=== PATIENT | female | born 1950 | race Caucasian/White ===

== ENCOUNTER 2023-10-23 14:50 | Emergency (ER) | payer MEDICARE ==
--- NOTE | 2023-10-23 15:17 | ED ---
Lower Extremity Injury HPI - General Chief Complaint: Extremity Injury, Lower Stated Complaint: Left Leg Pain Time Seen by Provider: 10/23/23 15:10 Source: patient, RN notes reviewed Mode of arrival: ambulatory Limitations: no limitations - History of Present Illness Initial Comments: 73-year-old female with no significant past medical history is emergency department with left leg pain that has been ongoing for the past 2 weeks. Pain is consistent and is described as a heaviness and aching sensation that travels down her left calf. She states that this pain started abruptly, with no acute cause or trauma that she is able to identify. Patient is able to complete range of motion of her left leg/knee while sitting but states that when she moves p ositions, like sitting to standing, she feels a giving out sensation of her left leg and denies any numbness or tingling. Patient states that she went to an urgent care on October 09 where they completed an ultrasound of her leg with no evidence of acute or chronic DVT. Denies previous surgery to left leg or knee. Denies history of heart attack or stroke, is not on any blood thinners. - Related Data Allergies Allergy/AdvReac Type Severity Reaction Status Date / Time No Known Allergies Allergy Verified 10/23/23 15:02 Review of Systems ROS Statement: Those systems with pertinent positive or pertinent negative responses have been documented in the HPI. ROS Other: All systems not noted in ROS Statement are negative. Past Medical History Past Medical History: No Reported History History of Any Multi-Drug Resistant Organisms: None Reported Past Surgical History: Cholecystectomy Additional Past Surgical History / Comment(s): gastric bypass, Past Psychological History: No Psychological Hx Reported Smoking Status: Former smoker Past Alcohol Use History: None Reported Past Drug Use History: None Reported General Exam Limitations: no limitations General appearance: alert, in no apparent distress Head exam: Present: atraumatic, normocephalic, normal inspection Eye exam: Present: normal appearance, PERRL, EOMI. Absent: scleral icterus, conjunctival injection, periorbital swelling ENT exam: Present: normal exam, mucous membranes moist Neck exam: Present: normal inspection. Absent: tenderness, meningismus, lymphadenopathy Respiratory exam: Present: normal lung sounds bilaterally. Absent: respiratory distress, wheezes, rales, rhonchi, stridor Cardiovascular Exam: Present: regular rate, normal rhythm, normal heart sounds. Absent: systolic murmur, diastolic murmur, rubs, gallop, clicks GI/Abdominal exam: Present: soft, normal bowel sounds. Absent: distended, tenderness, guarding, rebound, rigid Left Hip exam: Present: normal inspection Upper Leg exam: Present: normal inspection Knee exam: Present: normal inspection, tenderness (posterior knee), crepitus (mild crepitus with flexion and extension). Absent: full ROM (pain with active flexion and extension), swelling, ecchymosis Lower Leg exam: Present: normal inspection, tenderness (lateral popliteal region tenderness to palpation) Ankle exam: Present: normal inspection Foot/Toe exam: Present: normal inspection Neurovascular tendon exam: Present: no vascular compromise Back exam: Present: normal inspection Neurological exam: Present: alert, oriented X3, CN II-XII intact Psychiatric exam: Present: normal affect, normal mood Skin exam: Present: warm, dry, intact, normal color. Absent: rash Course Vital Signs 10/23/23 10/23/23 14:57 16:48 Temperature 98.4 F 97.6 F Pulse Rate 72 66 Respiratory 18 18 Rate Blood Pressure 162/108 162/89 O2 Sat by Pulse 98 98 Oximetry Medical Decision Making - Medical Decision Making Was pt. sent in by a medical professional or institution (, PA, DIRECTOR OF PSYCHOLOGY, urgent care, hospital, or shelter...) When possible be specific @ -No Did you speak to anyone other than the patient for history (EMS, parent, family, police, friend...)? What history was obtained from this source @ -No Did you review nursing and triage notes (agree or disagree)? Why? @ -I reviewed and agree with nursing and triage notes Were old charts reviewed (outside hosp., previous admission, EMS record, old EKG, old radiological studies, urgent care reports/EKG's, shelter records)? Report findings @ -No old charts were reviewed Differential Diagnosis (chest pain, altered mental status, abdominal pain women, abdominal pain men, vaginal bleeding, weakness, fever, dyspnea, syncope, headache, dizziness, GI bleed, back pain, seizure, CVA, palpatations, mental health, musculoskeletal)? @ -Differential Musculoskeletal Muscular strain, contusion, ligament sprain, fracture, arthritis, septic arthritis, bursitis, cellulitis, muscle spasm, nerve compression, DVT, arterial occlusion, herpes zoster, electrolyte abnormality, tumor.... This is not meant to be in all inclusive list EKG interpreted by me (3pts min.). @ -As above X-rays interpreted by me (1pt min.). @ -X-ray of left knee reveals moderate to severe osteoarthritis with joint degeneration CT interpreted by me (1pt min.). @ -None done U/S interpreted by me (1pt. min.). @ -None done What testing was considered but not performed or refused? (CT, X-rays, U/S, labs)? Why? @ -None What meds were considered but not given or refused? Why? @ -None Did you discuss the management of the patient with other professionals (professionals i.e. , PA, DIRECTOR OF PSYCHOLOGY, lab, RT, psych nurse, social media marketer, tents assembler, teacher, intelligence support officer, manager case)? Give summary @ -No Was smoking cessation discussed for >3mins.? @ -No Was critical care preformed (if so, how long)? @ -No Were there social determinants of health that impacted care today? How? (Homelessness, low income, unemployed, alcoholism, drug addiction, transportation, low edu. Level, literacy, decrease access to med. care, custodial, rehab)? @ -No Was there de-escalation of care discussed even if they declined (Discuss DNR or withdrawal of care, Hospice)? DNR status @ -No What co-morbidities impacted this encounter? (DM, HTN, Smoking, COPD, CAD, Cancer, CVA, ARF, Chemo, Hep., AIDS, mental health diagnosis, sleep apnea, morbid obesity)? @ -None Was patient admitted / discharged? Hospital course, mention meds given and route, prescriptions, significant lab abnormalities, going to OR and other pertinent info. @ -Discharged. 73-year-old female chief complaint of left lower extremity pain. X-ray of left knee revealed severe osteoarthritis with degenerative joint changes. Discussed with patient that symptoms that she is experiencing are likely secondary to the degenerative changes in her knee causing referred pain. Patient prescribed with starter pack of pain medication for severe bouts of pain. She was given discharge instructions with orthopedics for further evaluation and treatment. Discussed case with attending Dr. Sullivan who is agreeable with plan. Undiagnosed new problem with uncertain prognosis? @ -No Drug Therapy requiring intensive monitoring for toxicity (Heparin, Nitro, Insulin, Cardizem)? @ -No Were any procedures done? @ -No Diagnosis/symptom? @ -Leg pain, osteoarthritis Acute, or Chronic, or Acute on Chronic? @ -Acute Uncomplicated (without systemic symptoms) or Complicated (systemic symptoms)? @ -Uncomplicated Side effects of treatment? @ -No Exacerbation, Progression, or Severe Exacerbation? @ -No Poses a threat to life or bodily function? How? (Chest pain, [place], [place], pneumonia, PE, COPD, DKA, ARF, appy, cholecystitis, CVA, Diverticulitis, Homicidal, Suicidal, threat to staff... and all critical care pts) @ -No Disposition Clinical Impression: Leg pain, posterior Narrative: Please return to the Emergency Department if symptoms worsen or any other concerns. Please follow-up with orthopedics for further intervention and evaluation. Disposition: HOME SELF-CARE Condition: Good Instructions (If sedation given, give patient instructions): Osteoarthritis (ED) Is patient prescribed a controlled substance at d/c from ED?: No Referrals: Nonstaff,Physician [Primary Care Provider] - 1-2 days Dany Dave DO [Doctor of Osteopathic Medicine] - 1-2 days Time of Disposition: 16:28
[2023-10-23 15:27] VITALS: RESP 18
[2023-10-23] MEDS: KETOROLAC 15 MG/ML 1 ML VIAL IM STA (15:50)
--- NOTE | 2023-10-23 16:13 | XR ---
EXAMINATION TYPE: XR knee complete LT DATE OF EXAM: 10/23/2023 3:47 PM CLINICAL INDICATION:Female, 73 years old with history of pain, difficulty ambulating; H COMPARISON: None. TECHNIQUE: XR knee complete LT; examined in Frontal, lateral and oblique projections. FINDINGS: No evidence of any acute osseous pathology, soft tissue swelling, or joint effusion is no marija. Tricompartmental osteophyte formation involving the femoral condyles, tibial plateau and patella . Mild joint space narrowing. IMPRESSION: 1. No acute osseous pathology. 2. Severe tricompartmental osteoarthritic changes.
[2023-10-23] MEDS: ACET/COD 300 MG/30 MG STARTER PACK 6 TAB BTL PO STA (16:35)
[2023-10-23 17:08] VITALS: BP 162/89; PULSE 66; TEMP 97.6
== END 2023-10-23 17:29 | disposition home or self-care (01) ==
LOC: EC 14:50
DX: M79.605 Pain in left leg (principal); Z87.891 Personal history of nicotine dependence; Z90.49 Acquired absence of other specified parts of digestive tract
CPT/HCPCS: 73562; 99283; 96372; J1885